=== PATIENT | female | born 1975 | race Caucasian/White ===

== ENCOUNTER 2022-07-15 17:48 | Emergency (ER) | payer SELFPAY ==
[2022-07-15 19:12] LABS: BASOPHIL 0.9 % (0-2); EOSINOPHIL 1.6 % (0-5); HCT 43.1 % (37.0-47.0); HGB 14.4 g/dl (12.5-16.0); LYMPHOCYTE 18.8 % (15-48); MCH 31.8 pg (25.0-31.0); MCHC 33.4 g/dL (32.0-36.0); MCV 95.1 fL (78.0-100.0); MONOCYTE 5.9 % (0-12); MPV 12.8 fL (6.0-9.5); NEUTROPHIL 72.3 % (41-80); NRBC 0; PLT 274 K/uL (150-400); RBC 4.53 M/uL (4.20-5.40); WBC 12.8 K/uL (4.0-10.5)
[2022-07-15 19:37] LABS: CREATININE 0.74 mg/dL (0.51-0.95); POTASSIUM 3.9 mmol/L (3.5-5.1)
[2022-07-15 19:48] LABS: CORONAVIRUS 2019 SARS-COV-2 NEGATIVE (NEGATIVE); INFLUENZA A NAA NEGATIVE (NEGATIVE)
[2022-07-15 20:02] LABS: BUN/CREAT RATIO (CALC) 10.8 RATIO
[2022-07-15 20:06] LABS: BILIRUBIN NEGATIVE (NEGATIVE); BLOOD NEGATIVE Ery/uL (NEGATIVE); CLARITY CLEAR (CLEAR); COLOR YELLOW (YELLOW); GLUCOSE (U) NORMAL (NORMAL); LEUKOCYTES NEGATIVE Leu/uL (NEGATIVE); NITRITE NEGATIVE (NEGATIVE); PROTEIN NEGATIVE (NEGATIVE); SPECIFIC GRAVITY <=1.005 (1.001-1.030); UROBILINOGEN 0.2 mg/dL (0.2-1.0)
[2022-07-15 20:10] LABS: AMPHETAMINES NEGATIVE (NEGATIVE); BARBITURATES NEGATIVE (NEGATIVE); ECSTASY (MDMA) NEGATIVE (NEGATIVE); MARIJUANA (THC) POSITIVE (NEGATIVE); METHADONE NEGATIVE (NEGATIVE); OPIATES NEGATIVE (NEGATIVE); OXYCODONE NEGATIVE (NEGATIVE)
== END 2022-07-15 21:32 | disposition home or self-care (01) ==
LOC: FER 17:48
PROVIDERS: Nurse Practitioner Family
DX: R55 Syncope and collapse (principal); S00.93XA Contusion of unspecified part of head, initial encounter; F17.210 Nicotine dependence, cigarettes, uncomplicated; Z20.822 Contact with and (suspected) exposure to COVID-19; X58.XXXA Exposure to other specified factors, initial encounter; Y92.89 Other specified places as the place of occurrence of the external cause; Y93.89 Activity, other specified
CPT/HCPCS: 36415; 70450; 72125; 80048; 80305; 81003; 84443; 84484; 85025; 93005; U0002